=== PATIENT | male | born 1960 | race African-American/Black ===

== ENCOUNTER 2023-07-08 21:03 | Emergency (ER) | payer SELFPAY ==
[~2023-07-08] VITALS: Ht 162.6 cm; Wt 84.1 kg
[2023-07-08 21:31] VITALS: TEMP 98.8
[2023-07-08 22:17] VITALS: BP 152/81; PULSE 76; RESP 18
[2023-07-09] MEDS ORDERED: IBUP-1492 PO (00:33)
[2023-07-09] MEDS: KETOROLAC TROMETHAMINE 30 MG/ML VIAL IM ONE (00:44)
== END 2023-07-09 01:15 | disposition home or self-care (01) ==
LOC: EMS 21:08
DX: S80.11XA Contusion of right lower leg, initial encounter (principal); Z88.0 Allergy status to penicillin; V29.888A Rider (driver) (passenger) of other motorcycle injured in other specified transport accidents, initial encounter; Y93.89 Activity, other specified; Y92.89 Other specified places as the place of occurrence of the external cause; Y99.8 Other external cause status
CPT/HCPCS: 70450; 71045; 96372; 99285; J1885; 73552-LT